=== PATIENT | male | born 1990 | race Caucasian/White ===

== ENCOUNTER 2017-06-24 08:44 | Day surgery (SDC) | payer BC ==
[2017-06-24] MEDS: Lactated Ringers 1,000 ML IV SCH (09:28)
[2017-06-24] MEDS ORDERED: Propofol 200 MG/20 ML SDV IV ONE (10:30)
--- NOTE | 2017-06-24 16:05 | OR ---
DATE OF OPERATION: 06/24/2017 SURGEON: Clifford Dawson MD PROCEDURE PERFORMED: Colonoscopy with cold forceps biopsy. PREOPERATIVE DIAGNOSIS: History of diarrhea. POSTOPERATIVE DIAGNOSES: 1. Colitis involving the descending colon, sigmoid, and rectum. 2. Normal-appearing terminal ileum. 3. Normal-appearing ascending and transverse colon. INDICATIONS FOR PROCEDURE: This is a 26-year-old white male, who presented with a complaint of diarrhea. Infectious Disease workup today was negative. He was offered and accepted a colonoscopy. DESCRIPTION OF OPERATION: After an excellent IV sedation was administered, digital rectal exam was performed. No marked abnormality was noted. The flexible colonoscope was inserted and advanced to the cecum without difficulty. The terminal ileum was intubated and advanced approximately 5 cm. The following findings were noted. The terminal ileum was unremarkable. Biopsies were taken. Ascending colon, unremarkable. Random biopsies were taken. Transverse colon, unremarkable. Random biopsies were taken. Upon hitting the splenic flexure, there was some marked inflammation. This involved the descending colon, appeared to be worse around the level of the splenic flexure. Biopsies were taken. Sigmoid colon demonstrated inflammation. Random biopsies were taken, and the rectum demonstrated inflammation as well, and random biopsies were taken. The colon was deflated. Scope was removed. The patient tolerated the procedure well. /[id number] /MODL
== END 2017-06-24 11:52 | disposition home or self-care (01) ==
LOC: FB.SDS 08:44
PROVIDERS: ATTEND Surgery
DX: K51.90 Ulcerative colitis, unspecified, without complications (principal); K62.89 Other specified diseases of anus and rectum; G58.8 Other specified mononeuropathies; Z91.048 Other nonmedicinal substance allergy status
CPT/HCPCS: 88305; J2704; J7120